=== PATIENT | male | born 1980 | race Caucasian/White ===

== ENCOUNTER 2018-10-13 16:14 | Emergency (ER) | payer SELFPAY ==
--- NOTE | 2018-10-13 16:34 | ED ---
Syncope/Near Syncope - HPI Summary HPI Summary: Patient is a 38 y/o male brought in by EMS who presents to the ED s/p syncope. 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 Patient doesnt remember immediately before or after the event. He was able to ambulate after the event. He sustained a mild posterior head injury, but denies any current pain or other injuries. Patient denies any current CP, SOB, dizziness, or nausea. He drinks alcohol daily but denies drinking alcohol today. Patient denies any drug use. He denies any prior hx of seizures. - History Of Current Complaint Time Seen by Provider: 10/13/18 16:20 Hx Obtained From: Patient, EMS Onset/Duration: Sudden Onset, Resolved Context: Loss Of Consciousness Associated Head Trauma: Yes Alleviating Factor(s): Spontaneous Resolution Associated Signs And Symptoms: Negative - Allergies/Home Medications Allergies/Adverse Reactions: Allergies Allergy/AdvReac Type Severity Reaction Status Date / Time No Known Allergies Allergy Verified 10/13/18 16:27 Home Medications: Home Medications NK [No Home Medications Reported] 10/13/18 [History Confirmed 10/13/18] PMH/Surg Hx/FS Hx/Imm Hx Endocrine/Hematology History: Denies: Hx Diabetes Cardiovascular History: Denies: Hx Hypertension Neurological History: Denies: Hx Seizures Psychiatric History: Reports: Hx Substance Abuse - ETOH daily Infectious Disease History: No Infectious Disease History: Denies: Traveled Outside the [place] in Last 30 Days - Family History Known Family History: Positive: Cardiac Disease, Hypertension - Social History Alcohol Use: Daily Hx Substance Use: No Substance Use Type: Reports: None Hx Tobacco Use: Yes Smoking Status (MU): Heavy Every Day Tobacco Smoker Review of Systems Negative: Chest Pain Negative: Shortness Of Breath Negative: Nausea Positive: Other - posterior head injury Neurological: Other - NEGATIVE: dizziness Positive: Syncope All Other Systems Reviewed And Are Negative: Yes Physical Exam - Summary Physical Exam Summary: Constitutional: Well-developed, Well-nourished, Alert. (-) Distressed Skin: Warm, Dry HENT: Normocephalic; Dried blood on posterior occiput Eyes: Conjunctiva normal Neck: Musculoskeletal ROM normal neck. (-) JVD, (-) Stridor, (-) Tracheal deviation Cardio: Rhythm regular, rate normal, Heart sounds normal; Intact distal pulses; The pedal pulses are 2+ and symmetric. Radial pulses are 2+ and symmetric. (-) Murmur Pulmonary/Chest wall: Effort normal. (-) Respiratory distress, (-) Wheezes, (-) Rales Abd: Soft, (-) tenderness, (-) Distension, (-) Guarding, (-) Rebound Musculoskeletal: (-) Edema, C-spine non-tender, Back non-tender Lymph: (-) Cervical adenopathy Neuro: Alert, Oriented x3, Tremulous Psych: Mood and affect Normal GCS: 15 Triage Information Reviewed: Yes Vital Signs On Initial Exam: Initial Vitals Temp Pulse Resp BP Pulse Ox 99.9 F 95 18 142/88 96 10/13/18 16:18 10/13/18 16:18 10/13/18 16:18 10/13/18 16:18 10/13/18 16:18 Vital Signs Reviewed: Yes Diagnostics - Vital Signs Vital Signs Temp Pulse Resp BP Pulse Ox 10/13/18 16:18 99.9 F 95 18 142/88 96 - Laboratory Result Diagrams: 10/13/18 17:10 10/13/18 17:10 Lab Statement: Any lab studies that have been ordered have been reviewed, and results considered in the medical decision making process. - Radiology CXR Radiology Interpretation Completed By: Radiologist Summary of Radiographic Findings: NO ACTIVE CARDIOPULMONARY DISEASE. ED physician reviewed radiology report. - CT Brain CT CT Interpretation Completed By: Radiologist Summary of CT Findings: NO ACUTE INTRACRANIAL PATHOLOGY. ED physician reviewed radiology report. - EKG 17:37 Cardiac Rate: NL - 92 bpm EKG Rhythm: Sinus Rhythm Summary of EKG Findings: Normal sinus rhythm at 92 bpm, normal FL, normal QRS, normal QTc, normal axis, normal ST, normal T-waves, non-specific EKG. Re-Evaluation - Re-Evaluation First Eval Re-Evaluation Time: 19:37 Change: Unchanged Comment: Pt has an abrasion to his superior posterior occiput that does not require repair. Needs a second troponin and CT angiogram. Course/Dx Course Of Treatment: Patient is a 38 y/o male brought in by EMS who presents to the ED s/p syncope. He was able to ambulate after the event. He sustained a mild posterior head injury. Patient drinks alcohol daily and is a heavy smoker. A physical exam revealed Dried blood on posterior occiput, C-spine non-tender, Back non-tender. GCS of 15. A CXR was negative. A brain CT was negative. An EKG revealed a normal rate of 92 bpm, non-specific EKG. In the course patient was given Ativan, magnesium sulfate, and fluids. D-dimer of 1050. Rapid flu tests were negative. UA revealed protein, ketones, blood, hyaline casts. Final dx of syncope, head injury, scalp abrasion. Patient will be discharged. He is agreeable with this plan. - Diagnoses Provider Diagnoses: Syncope, Head injury, Scalp abrasion Discharge - Sign-Out/Discharge Documenting (check all that apply): Sign-Out Patient Signing out patient TO: Gabriel Zayas - pending CTA chest Patient Received Moderate/Deep Sedation with Procedure: No - Discharge Plan Referrals: No Primary Care Phys,NOPCP [Primary Care Provider] - - Attestation Statements Document Initiated by David: Yes Documenting Scribe: Carolyn Figueroa Provider For Whom Zaynabe is Documenting (Include Credential): Vangie Grey MD Scribe Attestation: Carolyn Harvey, scribed for Vangie Warren MD on 10/13/18 at 2311. Scribe Documentation Reviewed: Yes Provider Attestation: The documentation as recorded by the Carolyn elam accurately reflects the service I personally performed and the decisions made by me, Vangie Grey MD Status of Scribe Document: Viewed
[2018-10-13 17:39] LABS: ALT 91 U/L (7-52); AST 228 U/L (13-39); Albumin 4.1 g/dL (3.2-5.2); Albumin/Globulin Ratio 1.4 (1-3); Alcohol < 10 mg/dL (<10); Alkaline Phosphatase 100 U/L (34-104); Anion Gap 8 mmol/L (2-11); BUN/Creatinine Ratio 11.6 (8-20); Blood Urea Nitrogen 8 mg/dL (6-24); CO2 Carbon Dioxide 25 mmol/L (22-32); Calcium 9.4 mg/dL (8.6-10.3); Chloride 103 mmol/L (101-111); EGFR African American 153.7 (>60); Globulin 2.9 g/dL (2-4); Glucose 96 mg/dL (70-100); Hematocrit 37 % (36-46); Hemoglobin 12.5 g/dL (14.0-18.0); Magnesium 1.5 mg/dL (1.9-2.7); Mean Corpuscular HGB Conc 34 g/dL (31-36); Mean Corpuscular Hemoglobin 34 pg (27-31); Mean Corpuscular Volume 100 fL (80-94); Potassium 3.9 mmol/L (3.5-5.0); Red Blood Count 3.65 10^6 /uL (4.18-5.48); Red Cell Distribution Width 14 % (10.5-15); Sodium 136 mmol/L (135-145); White Blood Count 6.2 10^3/uL (3.5-10.8)
[2018-10-13 17:40] LABS: Troponin I 0.02 ng/mL (<0.04)
[2018-10-13 17:53] LABS: TSH (Thyroid Stimulating Horm) 1.88 mcIU/mL (0.34-5.60)
[2018-10-13 18:06] LABS: ABS Basophils 0 10^3/ul (0-0.2); ABS Eosinophils 0 10^3/ul (0-0.6); ABS Lymphocytes 0.5 10^3/ul (1.0-4.8); ABS Monocytes 0.3 10^3/ul (0-0.8); ABS Neutrophils 5.3 10^3/ul (1.5-7.7); ABS Nucleated RBC 0 10^3/ul; Eosinophil % 0.1 %; Lymphocyte % 8.3 %; Mean Platelet Volume 9.3 fL (7.4-10.4); Nucleated Red Blood Cells % 0; Platelet Count 81 10^3/uL (150-450)
[2018-10-13] MEDS ORDERED: Magnesium Sulfate 2 GM IV* 2 GM/50 ML BAG IVPB ONE (18:22)
[2018-10-13] MEDS ORDERED: NS 0.9% 1000 ML** 1,000 ML IV ONE (19:49)
[2018-10-13] MEDS ORDERED: Iohexol 350* (CONTRAST) 500 ML MDV IV ONE (20:10)
[2018-10-13 20:17] LABS: Urine Appearance Clear; Urine Bacteria Absent (Absent); Urine Bilirubin Negative (Negative); Urine Blood 1+ (Negative); Urine Color Amber; Urine Glucose Negative (Negative); Urine Ketones 1+ (Negative); Urine Nitrite Negative (Negative); Urine Protein 2+(100 mg/dL) (Negative); Urine Red Blood Cell Trace(0-2/hpf) (Absent); Urine Specific Gravity 1.019 (1.010-1.030); Urine Squamous Epithelial Cell Present (Absent); Urine Urobilinogen Negative (Negative); Urine White Blood Cell Trace(0-5/hpf) (Absent)
[2018-10-13] MEDS ORDERED: Lorazepam PYXIS KEY PRN (20:23)
[2018-10-13] MEDS ORDERED: LORazepam INJ* 2 MG/ML 1 ML VIAL IV PUSH ONE (20:23)
[2018-10-13 20:25] LABS: Influenza A Molecular NEGATIVE (Negative); Influenza B Molecular NEGATIVE (Negative)
[2018-10-13] MEDS ORDERED: Lorazepam PYXIS KEY ONE (20:25)
--- NOTE | 2018-10-13 23:43 | ED ---
Progress - Progress Note Progress Note: Patient is received as a sign out from Dr. Warren on 10/13/18 shift end pending CTA chest results. CTA CHEST IMPRESSION: 1. No visible acute pulmonary embolism. 2. No aortic dissection. THIS REPORT WAS REVIEWED BY DR. FAJARDO. Re-Evaluation - Re-Evaluation First Eval Re-Evaluation Time: 19:37 Change: Unchanged Comment: Pt has an abrasion to his superior posterior occiput that does not require repair. Needs a second troponin and CT angiogram. Second Eval Re-Evaluation Time: 00:30 Comment: Results of CTA discussed, patient will be discharged to home. He is agreeable with this. Course/Dx - Course Course Of Treatment: Patient is received as a sign out from Dr. Ehsan Grey on 10/13/18 shift end pending CTA chest results. CTA CHEST IMPRESSION: 1. No visible acute pulmonary embolism. 2. No aortic dissection. Results of CTA discussed, patient will be discharged to home. He is agreeable with this. - Diagnoses Provider Diagnoses: Syncope, Head injury, Scalp abrasion Discharge - Sign-Out/Discharge Documenting (check all that apply): Patient Departure - discharge, Receiving Sign-Out Receiving patient FROM: Vangie Warren Patient Received Moderate/Deep Sedation with Procedure: No - Discharge Plan Disposition: HOME Patient Education Materials: Syncope (ED) Referrals: No Primary Care Phys,NOPCP [Primary Care Provider] - Additional Instructions: The tests we did here this evening did not disclose any serious underlying problem leading to your episode. - Attestation Statements Document Initiated by Scribe: Yes Documenting Scribe: LEONARDO GUPTA Provider For Whom David is Documenting (Include Credential): BESSY FAJARDO MD Scribe Attestation: LEONARDO Harvey, scribed for BESSY FAJARDO MD on 10/14/18 at 0116. Status of Scribe Document: Ready
[2018-10-14 00:48] VITALS: BP 103/80
== END 2018-10-14 00:46 | disposition home or self-care (01) ==
LOC: ED 16:14
DX: R55 Syncope and collapse (principal); S00.01XA Abrasion of scalp, initial encounter; W18.30XA Fall on same level, unspecified, initial encounter; Y93.89 Activity, other specified; Y92.89 Other specified places as the place of occurrence of the external cause; Y99.0 Civilian activity done for income or pay; F17.210 Nicotine dependence, cigarettes, uncomplicated
CPT/HCPCS: 36415; 70450; 71045; 71275; 80053; 80320; 81003; 81015; 83605; 83735; 84443; 84484; 85025; 85060; 85379; 87086; 93005; 96361; 96365; 96366; 96374; 96375; 99284; G0480; J2060; J3475; Q9967